=== PATIENT | female | born 1985 ===

== ENCOUNTER 2019-10-28 13:47 | Outpatient (CLI) | payer OTHER | END 2019-10-28 13:48 | disposition home or self-care (01) | LOC: LAB.S 13:47 | DX: Z20.828 Contact with and (suspected) exposure to other viral communicable diseases (principal) | CPT/HCPCS: 81599 ==

== ENCOUNTER 2020-04-19 08:00 | Outpatient (CLI) | payer OTHER ==
[2020-04-19 17:34] LABS: MUDS CUTOFF CONCENTRATIONS CUTOFF CONC BELOW:
[2020-04-19 17:49] LABS: BILIRUBIN,URINE NEGATIVE (NEGATIVE); GLUCOSE, URINE (UA) NEGATIVE (NEGATIVE); KETONES,URINE (UA) NEGATIVE (NEGATIVE); LEUKOCYTE ESTERASE, URINE NEGATIVE (NEGATIVE); NITRITE,URINE NEGATIVE (NEGATIVE); OCCULT BLOOD,URINE NEGATIVE (NEGATIVE); PH,URINE 7.5 PH (5.0-7.5); PROTEIN,URINE NEGATIVE (NEGATIVE); UROBILINOGEN,URINE 0.2 (NORMAL) E.U./dL (NORMAL)
[2020-04-19 17:50] LABS: CLARITY,URINE CLEAR (CLEAR)
[2020-04-19 17:59] LABS: AMPHETAMINE SCREEN,URINE NEGATIVE (NEGATIVE); BENZODIAZEPINES SCREEN, URINE NEGATIVE (NEGATIVE); COCAINE SCREEN URINE NEGATIVE (NEGATIVE); METHADONE SCREEN, URINE NEGATIVE (NEGATIVE); METHAMPHETAMINES SCREEN, URINE NEGATIVE (NEGATIVE); OPIATE SCREEN, URINE NEGATIVE (NEGATIVE); OXYCODONE SCREEN, URINE NEGATIVE (NEGATIVE); PROPOXYPHENE SCREEN, URINE NEGATIVE (NEGATIVE); TRICYCLIC ANTIDEPRESSANT,URINE NEGATIVE (NEGATIVE)
== END 2020-04-19 23:59 | disposition home or self-care (01) ==
LOC: LAB.R 08:00
PROVIDERS: ATTEND Nurse Practitioner Obstetrics & Gynecology
DX: Z32.01 Encounter for pregnancy test, result positive (principal)
CPT/HCPCS: 80306; 81001; 81003; 87086

== ENCOUNTER 2020-05-10 10:16 | Outpatient (CLI) | payer OTHER ==
--- NOTE | 2020-05-10 13:09 | Ultrasound Report ---
PROCEDURE: OB First Trimester INDICATIONS: POSITIVE TEST OUTSIDE/PRIOR DATING DATA: Last menstrual period (LMP): 03/04/2020. LMP-based estimated date of delivery (DANIE): 12/09/2020. First dating scan (date and location): 05/10/2020. Estimated date of delivery (DANIE) from first dating scan: 12/06/2020. TECHNIQUE: Real-time scanning was performed of the fetus and maternal pelvic organs, with image documentation. COMPARISON: FINDINGS: Embryo: The uterine fundus there is a 4.8 cm gestational sac containing a 3.1 cm embryo with a heart rate is 175 bpm. Composite gestational age is 10 weeks 0 days. Measurement variability in dating: +/- 4 weeks by LMP, +/- 7 days by mean sac diameter (use before 6 weeks gestation if crown-rump length not able to be measured), +/- 5 days by crown-rump length (6-12 weeks gestation). Maternal organs: Ovaries unremarkable.. Limited images through the kidneys demonstrate no hydroneph rosis. IMPRESSION: Single live intrauterine gestation with average ultrasound age of 10 weeks 0 days. Reviewed by: Frank Conway MD on 05/10/2020 12:08 PM [place] Approved by: Frank Conway MD on 05/10/2020 12:08 PM [facility] Station ID: [id number]
== END 2020-05-10 10:17 | disposition home or self-care (01) ==
LOC: DI 10:16
PROVIDERS: ATTEND Nurse Practitioner Obstetrics & Gynecology
DX: Z32.01 Encounter for pregnancy test, result positive (principal)

== ENCOUNTER 2020-05-30 10:36 | Outpatient (CLI) | payer OTHER ==
[2020-05-30 11:36] LABS: BASOPHILS % (AUTO) 0.4 %; EOSINOPHILS % (AUTO) 0.2 %; HGB - HEMOGLOBIN 12.5 g/dL (12.0-16.0); LYMPHOCYTES # (AUTO) 1.3 10^3/uL (1.5-3.5); MEAN CORPUSCULAR HEMOGLOBIN 31.3 pg (27.0-31.0); MEAN CORPUSCULAR HGB CONC 33.6 g/dL (32.0-36.0); MEAN PLATELET VOLUME 10.7 fL (7.9-10.8); MONOCYTES # (AUTO) 0.7 10^3/uL (0.0-1.0); MONOCYTES % (AUTO) 7.6 %; NEUTROPHILS % (AUTO) 77.5 %; PLT - PLATELET COUNT 270 10^3/uL (130-450); RED CELL DISTRIBUTION WIDTH 12.7 % (12.0-15.0)
[2020-06-01 09:22] LABS: HIV AG/AB 4TH GEN NON-REACTIVE (NON-REACTIVE)
[2020-06-01 10:36] LABS: HEPATITIS B SURFACE ANTIGEN NON-REACTIVE (NON-REACTIVE)
[2020-06-01 10:38] LABS: HEPATITIS C ANTIBODY NON-REACTIVE (NON-REACTIVE)
== END 2020-05-30 10:37 | disposition home or self-care (01) ==
LOC: LAB 10:36
PROVIDERS: ATTEND Nurse Practitioner Obstetrics & Gynecology
DX: Z36.89 Encounter for other specified antenatal screening (principal); Z36.8A Encounter for antenatal screening for other genetic defects
CPT/HCPCS: 36415; 81220; 81243; 81599; 85025; 86592; 86762; 86787; 86803; 86850; 86900; 86901; 87340; 87389

== ENCOUNTER 2020-09-12 10:53 | Outpatient (CLI) | payer OTHER ==
[2020-09-12 12:31] LABS: HCT - HEMATOCRIT 37.9 % (37.0-47.0); HGB - HEMOGLOBIN 12.2 g/dL (12.0-16.0); MEAN CORPUSCULAR HEMOGLOBIN 31.5 pg (27.0-31.0); MEAN CORPUSCULAR HGB CONC 32.2 g/dL (32.0-36.0); MEAN CORPUSCULAR VOLUME 97.9 fL (81.0-99.0); MEAN PLATELET VOLUME 10.4 fL (7.9-10.8); RED BLOOD COUNT 3.87 10^6/uL (4.20-5.40); WHITE BLOOD COUNT 7.6 x10^3/uL (4.8-10.8)
== END 2020-09-12 10:54 | disposition home or self-care (01) ==
LOC: LAB 10:53
PROVIDERS: ATTEND Nurse Practitioner Obstetrics & Gynecology
DX: Z34.90 Encounter for supervision of normal pregnancy, unspecified, unspecified trimester (principal); Z36.8A Encounter for antenatal screening for other genetic defects
CPT/HCPCS: 36415; 81329; 81599; 82950; 85027

== ENCOUNTER 2020-09-17 17:51 | Outpatient (CLI) | payer OTHER ==
[2020-09-17 18:17] VITALS: BP 116/65
--- NOTE | 2020-09-17 23:00 | PROVIDER PROGRESS NOTE ---
- HPI Chief Complaint: Vaginal bleeding Current : Current EDU 12/09/20 Gestation 28 Weeks and 1 Days 1 Para 0 Vital Signs Temperature 36.6 C 09/17/20 18:15 Heart Rate 79 09/17/20 18:15 Respiratory Rate 16 09/17/20 18:15 Blood Pressure 116/65 09/17/20 18:15 O2 Saturation 99 09/17/20 18:15 Temperature 36.6 C 09/17/20 18:15 Heart Rate 79 09/17/20 18:15 Respiratory Rate 16 09/17/20 18:15 Blood Pressure 116/65 09/17/20 18:15 O2 Saturation 99 09/17/20 18:15 - Procedures OB Procedure Performed: NST NST Procedure: NST Procedure Start Date 09/17/20 Start Time 17:58 Stop Time 18:25 Vibroacoustic Stimulation Used No Patient States Movement Yes - Plan Plan: S: Halima presents to triage with a report of red bleeding with wiping after urinating once today. She has since urinated multiple times and has not seen any further bleeding. She endorses movement, and denies LOF or any contractions. She denies any foreign objects in vagina or intercourse in the last 24 hours. O: NST perform date: 09/17/2020 NST read date: 09/17/2020 Baseline 135, moderate variability, accels, no decels A: NST interpretation: reassuring 35yo at 28.1wks gestation- vaginal bleeding without labor or signs of placental abruption P: Discharge to home with labor precautions Continue with routine care
== END 2020-09-17 18:30 | disposition home or self-care (01) ==
LOC: WFO 17:51 → FBP 17:52 → WFO 18:30
PROVIDERS: ATTEND Advanced Practice Midwife
DX: O26.853 Spotting complicating pregnancy, third trimester (principal); O46.93 Antepartum hemorrhage, unspecified, third trimester; Z3A.28 28 weeks gestation of pregnancy
CPT/HCPCS: 59025

== ENCOUNTER 2020-11-12 08:00 | Outpatient (CLI) | payer OTHER | END 2020-11-12 23:59 | disposition home or self-care (01) | LOC: LAB.WC 08:00 | PROVIDERS: ATTEND Advanced Practice Midwife | DX: Z36.85 Encounter for antenatal screening for Streptococcus B (principal) | CPT/HCPCS: 87797 ==

== ENCOUNTER 2020-11-21 21:48 | Emergency (ER) | payer OTHER ==
--- NOTE | 2020-11-22 01:03 | ED Physician Documentation ---
History of Present Illness - Stated complaint Stated Complaint: LT LEG SWELLING - Chief complaint Chief Complaint: Ext Problem - History obtained from History obtained from: Patient - History of Present Illness Timing: Yesterday Improved by: elevating legs Worsened by: dependent position of legs - Additonal information Additional information: patient is 37 weeks, primagravida. She has had BLE swelling for several weeks but has noticed asymmetry since yesterday, with LLE more swollen than RLE. denies chest pain, denies dyspnea Review of Systems Constitutional: denies: Fever Cardiac: reports: Reviewed and negative Respiratory: reports: Reviewed and negative Musculoskeletal: reports: Extremity swelling. denies: Extremity pain PD PAST MEDICAL HISTORY - Past Medical History Past Medical History: No - Past Surgical History Past Surgical History: No - Present Medications Home Medications: Ambulatory Orders Medication Instructions Recorded Confirmed No122/Iron/Folic Acid 1 tablet PO DAILY 11/21/20 11/21/20 [ Multi Tablet] Valacyclovir HCl [Valtrex] 500 mg PO 11/21/20 - Allergies Allergies/Adverse Reactions: Allergies Allergy/AdvReac Type Severity Reaction Status Date / Time No Known Drug Allergies Allergy Verified 11/21/20 22:17 - Social History Does the pt smoke?: No Smoking Status: Never smoker Does the pt drink ETOH?: No Does the pt have substance abuse?: No - Immunizations Immunizations are current?: Yes PD ED PE NORMAL - Vitals Vital signs reviewed: Yes - General General: Alert and oriented X 3, No acute distress, Well developed/nourished - Cardiac Cardiac: RRR, No murmur - Respiratory Respiratory: No respiratory distress, Clear bilaterally - Abdomen Abdomen: Soft, Non tender, Other - Derm Derm: Normal color, Warm and dry, No rash PD ED PE EXPANDED - Extremities Extremities: Pedal edema bilateral (2+ BLE with subtle discrepancy (L>R)) Results - Vitals Vitals: Oxygen O2 Source Room air - Rads (name of study) LLE US doppler Radiology: Prelim report reviewed, See rad report PD MEDICAL DECISION MAKING - ED course Complexity details: reviewed results, re-evaluated patient, considered differential, d/w patient Departure - Departure Disposition: Home, Self Care Clinical Impression: Peripheral edema Condition: Good Instructions: ED Edema Legs Bilateral, ED Leg Swelling Unilateral Follow-Up: Kristie Craig ARNP [Primary Care Provider] - Discharge Date/Time: 11/22/20 01:16
[2020-11-22 01:16] VITALS: BP 117/61
--- NOTE | 2020-11-22 07:42 | Ultrasound Report ---
PROCEDURE: Duplex Ext Veins Left INDICATIONS: atraumatic swelling LLE TECHNIQUE: Real-time imaging, as well as color and pulse Doppler interrogation, were performed of the lower extr emity deep veins from the inguinal ligament to the popliteal fossa. COMPARISON: None. FINDINGS: The deep veins are normally compressible, and free of intraluminal thrombus. Color and pu lse Doppler demonstrate normal phasic intraluminal flow. There is normal augmentation response to di stal compression maneuver. IMPRESSION: No evidence of deep vein thrombosis involving the left lower extremity. Reviewed by: Yessenia Davidson MD, PhD on 11/22/2020 7:41 AM PDT Approved by: Yessenia Davidson MD, PhD on 11/22/2020 7:41 AM PDT Station ID: [id number]
== END 2020-11-22 01:16 | disposition home or self-care (01) ==
LOC: ED 21:48
DX: O99.891 Other specified diseases and conditions complicating pregnancy (principal); R60.0 Localized edema; Z3A.37 37 weeks gestation of pregnancy
CPT/HCPCS: 99282; 99284

== ENCOUNTER 2020-12-16 11:58 | Inpatient (IN) | payer OTHER ==
[2020-12-16 13:43] LABS: RUPTURE OF MEMBRANES PLUS POSITIVE (NEGATIVE)
[2020-12-16] MEDS ORDERED: miSOPROStoL 200 MCG TABLET BC PRN (15:34)
[2020-12-16] MEDS ORDERED: SODIUM CHLORIDE FLUSH 0.9% 10 ML SYRINGE IVP PRN (15:34)
[2020-12-16] MEDS ORDERED: fentaNYL 100 MCG/2 ML VIAL IVP PRN (15:34)
[2020-12-16] MEDS ORDERED: ONDANSETRON 4 MG/2 ML VIAL IVP PRN (15:34)
[2020-12-16] MEDS ORDERED: METHYLERGONOVINE 0.2 MG/ML VIAL IM PRN (15:34)
[2020-12-16] MEDS ORDERED: TRANEXAMIC ACID IN NACL 1,000 MG/100 ML BAG IV PRN (15:34)
[2020-12-16] MEDS ORDERED: OXYTOCIN 10 UNIT/ML VIAL IM PRN (15:34)
[2020-12-16] MEDS ORDERED: LIDOCAINE-MPF 1% 30 ML VIAL ID PRN (15:34)
[2020-12-16] MEDS ORDERED: CARBOPROST TROMETHAMINE 250 MCG/ML AMP IM PRN (15:34)
--- NOTE | 2020-12-16 15:48 | HISTORY & PHYSICAL EXAMINATION ---
Admit History - Visit Reason Visit Reason: Membranes rupture (Patient states she started at 3:30am. Patient presented to Labor and Delivery at noon for evaluation.) - : 1 Parity: 0 Premature: 0 Ectopic: 0 : 0 Risk/History: positive: Genital herpes Complications This : positive: None (Patient has had consistent Care with [facility]. 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 GBS negative. EDC of 12/09/20 41 0/ today.) Smoking Status: Never smoker - Mother's Labs Mother's Blood Type: positive: A Mother's RH: positive: Positive GBS: positive: Group B Step Negative Rubella Status: positive: Immune Meds/Allgy - Home Medications Home Medications: Ambulatory Orders Medication Instructions Recorded Confirmed No122/Iron/Folic Acid 1 tablet PO DAILY 11/21/20 11/21/20 [ Multi Tablet] Valacyclovir HCl [Valtrex] 500 mg PO 11/21/20 - Allergies Allergies/Adverse Reactions: Allergies Allergy/AdvReac Type Severity Reaction Status Date / Time koala AdvReac Anaphylaxis Uncoded 12/16/20 16:20 Review of Systems - Constitutional Constitutional: denies: Fatigue, Fever, Chills - Cardiovascular Cariovascular: denies: Irregular heart rate, Palpitations, Chest pain - Respiratory Respiratory: denies: Cough, Sputum production - Gastrointestinal Gastrointestinal: denies: Abdominal pain - Genitourinary Genitourinary: denies: Dysuria - Musculoskeletal Musculoskeletal: denies: Muscle pain - Integumentary Integumentary: denies: Rash Physical - Abdominal Exam Vital Signs: Temp Pulse Resp BP Pulse Ox 98.3 F 82 18 122/71 98 12/16/20 13:41 12/16/20 13:41 12/16/20 13:41 12/16/20 13:41 12/16/20 13:41 Contraction Frequency (min/apart): Irregular Contraction Intensity: positive: Mild (35yo at 41 0/7 presented to labor and delivery with history of she felt like she started leaking fluid at 3:30am. Patient is feeling irregular contractions. Patient reports good move ment. Sterile speculum exam performed, ROM+ is positive. Patient has had care.) - Monitoring Strip Review: positive: Category I - Presentation Presentation: positive: Vertex - Vaginal Exam Membranes: positive: Membranes ruptured Dilation (in cm): Could not reach Effacement (%): Could not palpate Cervical Position: positive: Posterior (RN performed exam and could not reach cervix because it was posterior. ROM+ positive.) - Speculum Exam Speculum Exam Performed: positive: Yes (No pooling of fluid seen on sterile speculum. No fluid seen on perineum, cervix unable to be reached due to posterior. ROM + was positive.) Findings: positive: Other (ROM+ positive.) Plan for Labor - Plan For Labor Plan for Labor: P- Begin Cytotec Induction. Continuous Monitoring. Anticipate .
[2020-12-16] MEDS ORDERED: miSOPROStoL 100 MCG TABLET BC SCH (16:00)
[2020-12-16] MEDS ORDERED: SODIUM CHLORIDE FLUSH 0.9% 10 ML SYRINGE IVP SCH (17:00)
[2020-12-16 17:10] LABS: BASOPHILS % (AUTO) 0.3 %; EOSINOPHILS % (AUTO) 0.4 %; HCT - HEMATOCRIT 36.6 % (37.0-47.0); HGB - HEMOGLOBIN 12.2 g/dL (12.0-16.0); LYMPHOCYTES # (AUTO) 1.4 10^3/uL (1.5-3.5); LYMPHOCYTES % (AUTO) 18.9 %; MEAN CORPUSCULAR HEMOGLOBIN 31.5 pg (27.0-31.0); MEAN CORPUSCULAR HGB CONC 33.3 g/dL (32.0-36.0); MEAN CORPUSCULAR VOLUME 94.6 fL (81.0-99.0); MEAN PLATELET VOLUME 11.1 fL (7.9-10.8); MONOCYTES # (AUTO) 0.5 10^3/uL (0.0-1.0); MONOCYTES % (AUTO) 6.6 %; NEUTROPHILS # (AUTO) 5.3 10^3/uL (1.5-6.6); NEUTROPHILS % (AUTO) 73.4 %; PLT - PLATELET COUNT 290 10^3/uL (130-450); RED BLOOD COUNT 3.87 10^6/uL (4.20-5.40); WHITE BLOOD COUNT 7.3 x10^3/uL (4.8-10.8)
[2020-12-17] MEDS: LACTATED RINGERS 1,000 ML IV SCH ×4 (05:09→21:36)
[2020-12-17] MEDS ORDERED: ROPIVACAINE 0.2% 200 MG/100 ML BAG EP ONE (05:31)
[2020-12-17] MEDS ORDERED: OXYTOCIN/SODIUM CHLORIDE 500 ML IV SCH (06:00)
[2020-12-17] MEDS ORDERED: ePHEDrine 50 MG/ML VIAL IVP ONE (06:31)
--- NOTE | 2020-12-17 06:40 | ANESTHESIA ---
Pre-Anesthesia VS, & Labs - Diagnosis active labor - Procedure labor epidural Vital Signs: Temp Pulse Resp BP Pulse Ox 36.9 C 92 18 119/66 100 12/16/20 16:06 12/16/20 16:06 12/16/20 16:06 12/16/20 16:06 12/16/20 16:06 Height: 5 ft 8.5 in Weight (kg): 96.162 kg Body Mass Index: 31.7 BMI Classification: Obese - NPO Other (sipping water) - Is Patient ?: Yes - Lab Results Current Lab Results: Laboratory Tests 12/16/20 16:55: Blood Type A POSITIVE, Antibody Screen NEGATIVE 12/16/20 16:55: WBC 7.3, RBC 3.87 L, Hgb 12.2, Hct 36.6 L, MCV 94.6, MCH 31.5 H, MCHC 33.3, RDW 14.0, Plt Count 290, MPV 11.1 H, Neut # (Auto) 5.3, Lymph # (Auto) 1.4 L, [place] # (Auto) 0.5, Eos # (Auto) 0.0, Baso # (Auto) 0.0, Absolute Nucleated RBC 0.00, Nucleated RBC % 0.0 Fish Bones: 12/16/20 16:55 Home Medications and Allergies Active Medications Carboprost Tromethamine (Carboprost Tromethamine 250 Mcg/Ml Amp) 250 mcg IM Q15M PRN PRN Reason: Step 4: Hemorrhage protocol Stop: 12/21/20 15:35 Fentanyl (Fentanyl 100 Mcg/2 Ml Vial) 50 mcg IVP Q1H PRN PRN Reason: PAIN Lactated Ringer's (Lr) 1,000 mls @ 100 mls/hr IV .Q10H PAULA Last Admin: 12/17/20 05:09 Dose: 100 mls/hr Documented by: Oxytocin/Sodium Chloride (Pitocin/Sodium Chloride) 500 mls @ 999 mls/hr IV PRN PRN; Protocol PRN Reason: POST- HEMORR PREVENTION Stop: 12/21/20 15:35 Tranexamic Acid (Tranexamic 1,000 Mg/100ml-Nacl) 1,000 mg in 100 mls @ 600 mls/hr IV .ONCE PRN PRN Reason: EBL >1200mL and within 3hr Stop: 12/21/20 15:35 Oxytocin/Sodium Chloride (Pitocin/Sodium Chloride) 500 mls @ 1 mls/hr IV TITR PAULA; Protocol Last Admin: 12/17/20 05:14 Dose: 1 milliunit/min, 1 mls/hr Documented by: Lidocaine HCl (Lidocaine-Mpf 1% 30 Ml Vial) 30 ml ID .ONCE PRN PRN Reason: PERINEAL REPAIR Stop: 12/21/20 15:35 Methylergonovine Maleate (Methylergonovine 0.2 Mg/Ml Vial) 0.2 mg IM .ONCE PRN PRN Reason: Step 2: Hemorrhage protocol Stop: 12/21/20 15:35 Misoprostol (Misoprostol 200 Mcg Tablet) 800 mcg BC .ONCE PRN PRN Reason: Step 3: Hemorrhage protocol Stop: 12/21/20 15:35 Misoprostol (Misoprostol 100 Mcg Tablet) 50 mcg BC Q4H PAULA Last Admin: 12/16/20 17:15 Dose: 50 mcg Documented by: Ondansetron HCl (Ondansetron 4 Mg/2 Ml Vial) 4 mg IVP Q4HR PRN PRN Reason: Nausea / Vomiting Oxytocin (Oxytocin 10 Unit/Ml Vial) 10 unit IM .ONCE PRN PRN Reason: Step one: If no IV access Stop: 12/21/20 15:35 Sodium Chloride (Sodium Chloride Flush 0.9% 10 Ml Syringe) 10 ml IVP 0100,0900,1700 [facility] Sodium Chloride (Sodium Chloride Flush 0.9% 10 Ml Syringe) 10 ml IVP PRN PRN PRN Reason: NEEDED PER PROVIDER ORDERS No122/Iron/Folic Acid [ Multi Tablet] 1 tablet PO DAILY 11/21/20 Valacyclovir HCl [Valtrex] 500 mg PO 11/21/20 Allergies/Adverse Reactions: Allergies Allergy/AdvReac Type Severity Reaction Status Date / Time koala AdvReac Anaphylaxis Uncoded 12/16/20 16:20 Anes History & Medical History - Anesthetic History Anesthesia Complications: reports: No previous complications Family history of Anesthesia Complications: Denies Family history of Malignant Hyperthermia: Denies - Medical History Cardiovascular: reports: None Pulmonary: reports: None Gastrointestinal: reports: None Urinary: reports: None Smoking Status: Never smoker - Obstetrical History : 1 Parity: 0 Events: reports: Genital herpes Complications: reports: None (Patient has had consistent Care with [facility] Midwives. 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 GBS negative. EDC of 12/09/20 41 today.) Exam General: Alert, Oriented x3, Cooperative Dental: WNL Mouth Openin Fingerbreadth Neck Mobility: Normal Mallampati classification: II Thyromental Distance: 4-6 cm Respiratory: Lungs clear Cardiovascular: Regular rate Plan Anesthesia Type: Epidural Consent for Procedure(s) Verified and Reviewed: Yes Code Status: Attempt Resuscitation ASA classification: 2-Mild systemic disease Is this case an emergency?: No
--- NOTE | 2020-12-17 06:40 | ANESTHESIA PROCEDURE NOTE ---
Anesthesia Epidural Template - Patient Report Patient Reports: positive: Pain controlled - Plan Plan: positive: Continue current management
[2020-12-17] MEDS ORDERED: diphenhydrAMINE INJ 50 MG/ML VIAL IVP PRN (06:48)
[2020-12-17] MEDS ORDERED: METOCLOPRAMIDE 10 MG/2 ML VIAL IVP PRN ×2 (06:48→13:13)
[2020-12-17] MEDS ORDERED: NALBUPHINE 10 MG/ML AMP IVP PRN (06:48)
[2020-12-17] MEDS ORDERED: ONDANSETRON 4 MG/2 ML VIAL IVP PRN ×2 (06:48→13:13)
[2020-12-17] MEDS ORDERED: ePHEDrine 50 MG/ML VIAL IVP PRN (06:48)
[2020-12-17] MEDS ORDERED: NALOXONE 0.4 MG/ML VIAL IVP PRN (06:48)
[2020-12-17] MEDS ORDERED: ROPIVACAINE 0.2% 200 MG/100 ML BAG EP PRN (13:13)
--- NOTE | 2020-12-17 13:47 | PROVIDER PROGRESS NOTE ---
Labor Progress Note - Uterine Monitoring Uterine Monitoring Mode: positive: External toco Contraction Frequency (min/apart): 3-5 Contraction Intensity: positive: Moderate Uterine Resting Tone: positive: Soft - Monitoring Monitor Mode: positive: External ultrasound Heart Rate Baseline: 130 Heart Rate Variability: positive: Moderate (6-25 bmp) Accelerations: positive: Present, 15x15 Decelerations: positive: None Strip Review: positive: Category I - Vaginal Exam Dilation (in cm): 6-7 Effacement (%): 100 Station: 0 Cervical Position: Anterior - Labor Progress Note Labor Progress Note/Additional Text: S: Pt comfortable with epidural. Has been rotating in bed on peanut ball and pt desires to continue to do this. She is feeling well overall. Her Shankar is supportive at the bedside. O: FHR baseline 130, moderate variability, + accels, no decels Contractions palpate moderate every 3-5 minutes with soft resting tone SVE 6-7/100/0 A: 33yo @ 41.1wks gestation by LMP c/w 10.0wk U/S Active labor following PROM Prolonged rupture of membranes - 34hours. Remains afebrile. Postdates GBS negative FHR Category I P: Continue active management of labor. Consider IUPC if unchanged at next check. Limit cervical exams secondary to prolonged rupture of membranes. Continuous monitoring Encouraged position changes in bed with peanut ball Anticipate . Pt and at the bedside verbalized understanding and agrees to above plan. She denies further questions or concerns at this time.
[2020-12-17] MEDS: OXYTOCIN/SODIUM CHLORIDE 500 ML IV PRN ×2 (20:22→21:37)
[2020-12-17] MEDS ORDERED: WITCH HAZEL/GLYCERIN 1 PAD TOP PRN (20:50)
[2020-12-17] MEDS ORDERED: HYDROCORTISONE 1% CREAM 28 GM TUBE PR PRN (20:50)
--- NOTE | 2020-12-17 21:27 | DELIVERY NOTE ---
Delivery Note - Labor Labor: positive: Induced by oxytocin - Infant Delivery Method Delivery Method: positive: Spontaneous vaginal delivery - Cervical Ripening Method Cervical Ripening Method: positive: Misoprostil - Presentation Presentation: positive: Vertex, GEORGE - left occiput anterior - Nuchal Cord Nuchal Cord: positive: None - Amniotic Fluid Description Amniotic Fluid Description: positive: Clear - Episiotomy Type Episiotomy Type: positive: None - Laceration Laceration: positive: 2nd degree, Vaginal - Suture Suture Type: positive: Vicryl Suture Size: positive: 2-0, 3-0 - Delivery Outcome Delivery Outcome: positive: Livebirth - [place] : positive: Placed in direct skin contact with mother, Stimulated, Warmed, [place] used sex: positive: Male - Cord Cord: positive: 3 vessels - Placenta Placenta: positive: Intact, Spontaneous - Estimated Blood Loss Estimated Blood Loss (in cc): 450 - Post Delivery Events Post Delivery Events: positive: No post delivery events - Delivery Comments (Free Text/Narrative) Delivery Comments (Free Text/Narrative): Labor: This 35yo @ 41.1wks gestation by LMP c/w 10.0wk U/S presented on 12/16/2020 with complaints of vaginal leakage of fluid which occurred at approximately 0330. ROM plus was collected and returned positive however it remained unclear if her membranes were ruptured secondary to no ferning, negative nitrizine, and no pooling. Cervix was high and posterior and misoprostol was initiated for cervical ripening. Pitocin initiated for labor augmentation per protocol. With position changes following epidural there was noted to be increased leakage of clear vaginal fluid. Epidural placed per maternal request. FHR pattern demonstrated Category I pattern throughout first stage of labor. Labor course complicated by prolonged rupture of membranes. Pt progressed to c/c/+2 @ 1814 with onset of pushing at 1833. At approximately 1852 there was noted to be recurrent late decelerations however was noted to be imminent with adequate maternal pushing effort, decent, and response to scalp stimulation. : Normal of viable male on 12/17/2020 @ 1939. No nuchal cord. The was placed on maternal abdomen, stimulated, dried, and placed skin to skin. Apgars were 8/8 at 1 and 5 minutes respectively. Pitocin administered via IV for hemostasis. The umbilical cord was allowed to stop pulsating at which time it was doubly clamped by CNM and cut by FOB. 3VC. Cord blood was obtained. Fundal massage and gentle cord traction applied for active management of the third stage. Placenta delivered spontaneously and intact at 1945. EBL 450mL. Fourth stage: Uterine fundus firm and there is no excessive bleeding. The perineum, vagina, and cervix were inspected and noted to have a 2nd degree vaginal laceration with minor perineal laceration which was repaired using a 2-[address]- 1 needle and a 3-[address]-1 needle in standard fashion and under sterile conditions. Vaginal and rectal examination following repair was done. Tissues well approximated. initiated. Family bonding well. Both mother and baby were left in stable condition.
[2020-12-17] MEDS: ACETAMINOPHEN 500 MG TABLET PO SCH (21:42)
[2020-12-17] MEDS: DOCUSATE SODIUM 100 MG CAPSULE PO SCH (21:42)
[2020-12-17] MEDS: IBUPROFEN 800 MG TABLET PO SCH (21:42)
[2020-12-18] MEDS: IBUPROFEN 800 MG TABLET PO SCH ×4 (03:42→22:08)
[2020-12-18] MEDS: ACETAMINOPHEN 500 MG TABLET PO SCH ×2 (08:02→16:00)
[2020-12-18] MEDS: DOCUSATE SODIUM 100 MG CAPSULE PO SCH ×2 (09:21→22:08)
--- NOTE | 2020-12-18 09:22 | PROVIDER PROGRESS NOTE ---
Subjective - Subjective Subjective: S: Bonding well with baby. without difficulty. Bleeding decreased and is light. Pain well controlled with oral medications. Urinating without difficulty or pain. Has not yet had a bowel movement but has been taking stool softener when offered. Had an episode of feeling dizzy and lightheaded yesterday. She feels it may have been related to the epidural being removed. She states she is no longer feeling light headed or dizzy at all and is feeling great. supportive at the bedside. O: BP 85-102/42-52, T 36.8, HR 72-75, RR 16, O2 99-100 Admit Hgb/Hct 12.2/36.6 Heart RRR w/o M/G/R, lungs CTAB, abdomen soft and nontender with fundus firm at U-1, perineum intact, repair with mild edema, light lochia rubra, bilateral LE's mild edema. A: 35yo -->P1 PPD#1 s/p TSVD viable male infant named Bryn 2nd degree perineal laceration -intact Hypotension - asymptomatic P: Continue routine pp care and medications. Will monitor BP and administer ephedrine if pt becomes symptomatic with hypotension. Evaluate for discharge home tomorrow. Pt and at the bedside verbalized understanding and agrees to above plan. She denies further questions or concerns at this time. Objective - Vital Signs/Intake & Output Vital Signs: Vital Signs x48h Temp Pulse Resp BP Pulse Ox 12/18/20 05:47 36.8 C 72 16 85/42 L 99 12/18/20 02:28 75 19 95/42 L 100 Intake & Output: Intake & Output 12/15/20 12/16/20 12/17/20 12/18/20 23:59 23:59 23:59 23:59 Intake Total 3199.183 374.917 Output Total 1305 275 Balance 1894.183 99.917 - Lab Results Fish Bones: 12/16/20 16:55
[2020-12-19] MEDS: ACETAMINOPHEN 500 MG TABLET PO SCH ×3 (00:10→15:55)
[2020-12-19] MEDS: IBUPROFEN 800 MG TABLET PO SCH ×2 (04:10→12:30)
[2020-12-19] MEDS: DOCUSATE SODIUM 100 MG CAPSULE PO SCH (07:57)
--- NOTE | 2020-12-19 09:16 | Discharge Plan ---
Discharge Plan Problem Reviewed?: Yes Disposition: Home, Self Care Condition: Good Diet: Regular Activity Restrictions: No Restrictions Shower Restrictions: No Driving Restrictions: No Weight Bearing: Full Weight No Smoking: If you smoke, Please STOP! Call for help. Follow-up with: Julia Hodges CNM, ARNP [Provider Admit Priv/Credential] -
--- NOTE | 2020-12-19 09:27 | DISCHARGE SUMMARY ---
Discharge Summary Condition at Discharge: Good Discharge Disposition: 01 Home, Self Care - HOSPITAL COURSE Hospital Course: FINAL PROGRESS NOTE: S: Bonding well with baby. without difficulty. Bleeding decreased and is light. Pain well controlled with oral medications. She is urinating a tolerating a regular diet. She has not yet had a bowel movement but is taking h er stool softener daily when offered and will continue at home. She has not had any episodes of near syncope or lightheadedness since immediately after . Her BPs are WNL. O: BP 113/61, T 37.0, RR 18, HR 62 Heart RRR w/o M/G/R, lungs CTAB, abdomen soft and nontender with fundus firm at U-2, perineum intact, repair without edema, light lochia rubra, bilateral LE's trace edema. A: 35yo -->P1 PPD#2 s/p TSVD viable male infant 2nd degree perineal laceration intact P: Reviewed pp self care and warning s/sx and when to present. Discharge home today. Continue ibuprofen and tylenol OTC as needed for pain management. Continue taking vitamin while . F/u in 1 week for routine pp visit or sooner PRN. Pt has emergency contact information. She verbalized understanding and agrees to above plan. She denies further questions or concerns at this time. Date of Admission: 12/16/2020 Date of Discharge: 12/19/2020 Diagnosis on Admission: 1. 35yo @ 41.0wks gestation 2. PROM 3. Postdates 4. GBS negative Diagnosis on Discharge: 1. 35yo s/p TSVD viable male 2. 2nd degree perineal laceration- intact 3. 4. Normal recovery Brief history: She is a patient of [facility] who presented on 12/16/2020 with c/o vaginal leakage of fluid. Her ROM plus returned positive however there was no pooling, negative ferning, and negative nitrizine. SVE was high and posterior. She was given 3 doses of 50mcg BC misoprostol for effective cervical ripening. Pitocin was initiated for induction of labor for a maximum infusion rate of 10mU/mL. She received an epidural for pain management. She progressed to delivery a viable male infant on 12/17/2020 @ 1939. Apgars were 8/8 at 1 and 5 minutes respectively. EBL 450mL. The perineum, vagina, and cervix were inspected and noted to have a 2nd degree vaginal and perineal laceration which were repaired using a 2-0 and a 3-0 vicryl in standard fashion and under sterile conditions. She has been doing well in her course. She had one episode immediately where she felt lightheaded and dizzy with hypotension. This improved with IV fluid bolus and eating a meal. She is currently normotensive and remained asymptomatic following this initial incident. She is ambulating and tolerating a regular diet. She is urinating without difficulty and her lochia is normal. Her pain is well controlled with oral medications. She will be discharged home today on day #1 with instructions to continue taking her vitamin while and to continue taking ibuprofen and tylenol over the counter as needed for pain management. She intends to follow up with myself at [facility] in 1 week for routine pp visit or sooner if needed. She has been given precautions to call if she has any worsening fevers, chills, abdominal pain, increased vaginal bleeding or foul smelling vaginal lochia. - ALLERGIES Allergies/Adverse Reactions: Allergies Allergy/AdvReac Type Severity Reaction Status Date / Time animal dander Allergy Severe Anaphylaxis Verified 12/19/20 08:10 - MEDICATIONS Home Medications: Ambulatory Orders Medication Instructions Recorded Confirmed No122/Iron/Folic Acid 1 tablet PO DAILY 11/21/20 11/21/20 [ Multi Tablet] Valacyclovir HCl [Valtrex] 500 mg PO 11/21/20 - LABS Result Diagrams: 12/16/20 16:55
[2020-12-19 10:54] VITALS: BP 119/53
== END 2020-12-19 16:00 | disposition home or self-care (01) | DRG 806 ==
LOC: WFO 11:58 → FBP 12:16 → WFO 15:33 → FBP 15:34 → WFO 15:46
PROVIDERS: ADMIT Obstetrics & Gynecology; ATTEND Nurse Practitioner Obstetrics & Gynecology
PROC: 3E0DXGC Introduction of Other Therapeutic Substance into Mouth and Pharynx, External Approach (ICD-10-PCS; 2020-12-16)
PROC: 10E0XZZ Delivery of Products of Conception, External Approach (ICD-10-PCS; principal; 2020-12-17)
PROC: 0KQM0ZZ Repair Perineum Muscle, Open Approach (ICD-10-PCS; 2020-12-17)
DX: O42.02 Full-term premature rupture of membranes, onset of labor within 24 hours of rupture (principal); O98.32 Other infections with a predominantly sexual mode of transmission complicating childbirth; Z37.0 Single live birth; A60.00 Herpesviral infection of urogenital system, unspecified; O70.1 Second degree perineal laceration during delivery; O90.89 Other complications of the puerperium, not elsewhere classified; I95.9 Hypotension, unspecified; Z3A.41 41 weeks gestation of pregnancy; Z79.899 Other long term (current) drug therapy
CPT/HCPCS: 36415; 84112; 85025; 86850; 86900; 86901; 99214; A9270; J2210; J7120; 99212